=== PATIENT | female | born 1995 | race Caucasian/White ===

== ENCOUNTER 2016-12-11 05:08 | Emergency (ER) | payer OTHER ==
[~2016-12-11 05:08] MED LIST: ACYCLOVIR400 MG PO; ALLEGRA PO; BACTRIM 400-801 TA1; BACTRIM DS TABL1 TAB PO; FLAGYL; KEFLEX PO; NEXIUM PO; NO MEDICATIONS; NORCO 5/325 TAB1 TAB PO; PERCOCET5/325 PO; PHENERGAN DM1 ML PO; PRENATAL1 TA1 PO; RISPERIDONE PO; TOPAMAX PO; VOLTAREN75 MG PO; ZYRTEC-D TABLE1 EACH PO
[2016-12-13] MEDS ORDERED: NO MEDICATIONS (01:05)
== END 2016-12-11 05:17 | disposition home or self-care (01) ==
LOC: SED 05:08
DX: L02.01 Cutaneous abscess of face (principal); L02.212 Cutaneous abscess of back [any part, except buttock and flank]; L02.11 Cutaneous abscess of neck; L02.414 Cutaneous abscess of left upper limb; L02.413 Cutaneous abscess of right upper limb; L02.211 Cutaneous abscess of abdominal wall; F17.200 Nicotine dependence, unspecified, uncomplicated
CPT/HCPCS: 99282

== ENCOUNTER 2016-12-13 01:21 | Emergency (ER) | payer OTHER ==
--- NOTE | ~2016-12-13 | CT99 ---
[facility]. [facility] [place] A Service of [facility] RADIOLOGY TEXT RESULTS PATIENT: YEISON NEWMAN LOCATION: SED : [birth year] UNIT #: [id number] AGE: [address]: Marc Rivero SEX: F ORDER DR: [id number] [place] [id number] MR#: [id number] Acc #: [id number] NAME: YEISON NEWMNA : 1995 SEX: F STUDY DATE/TIME: 12/13/2016 2:11 UNIT: SED ROOM: STUDY DESCRIPTION: CT Maxillofacial Area W Cont Attending Physician: Marc Rivero P.A.-C. Ordering Physician: Marc Rivero P.A.-C. Primary Care Physician: No Primary Care Physician MEDICAL IMAGING REPORT This report is preliminary unless electronic signature is present. EXAM CT face without contrast. DATE 12/13/2016 HISTORY 21-year-old female with right side facial swelling for 2 days. COMPARISON None PROCEDURE 2 mm axial images through the face after IV contrast administration. Sagittal and coronal reformatted images were obtained. This CT exam was performed with one or more of the following radiation dose reduction techniques: automatic exposure control, adjustment of mA and/or kV according to patient size, and iterative reconstruction. FINDINGS There is mild asymmetric subcutaneous fat induration and skin thickening along the right side of the face suggesting focal cellulitic change (see series 6 image 17 denoted by arrows). No well-defined drainable fluid collection or abscess is seen. The parotid and submandibular glands appear normal. Major paranasal sinuses and mastoid air cells are clear. Minimal bilateral maxillary sinus mucosal thickening. Imaged osseous structures are within normal limits. Major vascular structures appear well opacified and patent. No appreciable periodontal disease. Imaged portion of the brain parenchyma appears normal. IMPRESSION [facility] A Service [facility] RADIOLOGY TEXT RESULTS PATIENT: YEISON NEWMAN LOCATION: SED : 93 UNIT #: [id number] AGE: [address]: Marc Rivero PAC SEX: F ORDER DR: Asymmetric right facial skin thickening and subcutaneous fat induration suggestive of cellulitic type change. No drainable fluid collection or abscess is seen. Dictated by... Cheli Bradley M.D. THIS IS AN ELECTRONICALLY VERIFIED REPORT Cheli Bradley M.D. at 12/13/2016 10:[address] [facility]/[place] TD: 12/13/2016 12:25 JOB #: [id number] MEDICAL IMAGING REPORT
[2016-12-13 02:05] LABS: BASOPHIL# 0.2 X10e3 (0-0.3); BASOPHIL% 0.8 % (0-2.5); EOSINOPHIL# 0.6 X10e3 (0-0.7); HEMATOCRIT 42.7 % (35.0-45.0); HEMOGLOBIN 14.3 gm/dL (12.0-16.0); LYMPHOCYTE# 3.5 X10e3 (1.0-3.5); LYMPHOCYTE% 12.8 % (17.0-45.0); MEAN CELL VOLUME 95.8 FL (83-96); MEAN CORPUSCULAR HGB CONC 33.4 g/dL (30-36); MEAN PLATELET VOLUME 8.4 FL (6.5-11.5); MONOCYTE# 1.5 X10e3 (0-1.0); MONOCYTE% 5.6 % (3.0-12.0); NEUTROPHIL# 21.4 X10e3 (1.5-7.1); NEUTROPHIL% 78.8 % (40-75); PLATELET COUNT 317 X10e3 (140-420); RED BLOOD COUNT 4.46 X10e (3.90-5.30); RED CELL DISTRIBUTION WIDTH 13.1 % (11.0-15.5); WHITE BLOOD COUNT 27.2 X10e3 (4.0-10.5)
[2016-12-13 02:07] LABS: DIFF IND NO
[2016-12-13 02:16] LABS: ALBUMIN SERUM 4.2 g/dL (3.5-5.0); ALKALINE PHOSPHATASE 62 U/L (32-92); ALT (SGPT) 22 U/L (10-40); AST (SGOT) 40 U/L (10-42); BILIRUBIN,TOTAL 0.4 mg/dL (0.2-2.0); BLOOD UREA NITROGEN 13 mg/dL (9-23); BUN/CREATININE RATIO 21.66; CARBON DIOXIDE 25 mmol/L (22-31); CHLORIDE 102 mmol/L (100-111); CREATININE SERUM 0.6 mg/dL (0.6-1.4); GLOM FILT RATE Estimated ABOVE60 mL/min (>60); GLUCOSE FASTING 71 mg/dL (70-110); SODIUM 138 mmol/L (135-145)
[2016-12-13 02:17] LABS: BILIRUBIN, DIRECT <0.1 mg/dL (0.0-0.2); BILIRUBIN,INDIRECT 0.3 mg/dL (0.0-0.9)
== END 2016-12-13 05:20 | disposition home or self-care (01) ==
LOC: SED 01:21
PROVIDERS: Physician Assistant
DX: L02.215 Cutaneous abscess of perineum (principal); L03.211 Cellulitis of face; Z88.5 Allergy status to narcotic agent; Z91.040 Latex allergy status
CPT/HCPCS: 10060; 36415; 70487; 80048; 80076; 85025; 87040; 87070; 87077; 87186; 87205; 96361; 96365; 96367; 96375; 96376; 97602; 99284; J1170; J2270; J2405; J2543; J3370; Q9967

== ENCOUNTER 2016-12-16 17:08 | Emergency (ER) | payer OTHER ==
--- NOTE | ~2016-12-16 | EKG ---
PATIENT: YEISON NEWMAN UNIT #: [id number] Ventricular Rate: 112 BPM Atrial Rate: 112 BPM P-R Interval: 138 ms QRS Duration: 80 ms Q-T Interval: 330 ms QTC Calculation(Bezet): 450 ms P Lacrosse: 84 degrees Calculated R Lacrosse: 90 degrees Calculated T Lacrosse: 46 degrees Diagnosis Line: Sinus tachycardia with frequent Premature Diagnosis Line: ventricular complexes Diagnosis Line: Rightward axis Diagnosis Line: Borderline ECG Diagnosis Line: No previous ECGs available Diagnosis Line: Confirmed by ROBE YODER MD ([id number]) on 12/22/2016 Diagnosis Line: 9:37:19 AM INTERPRETING MD: BEBA LOMAS
== END 2016-12-16 17:18 | disposition home or self-care (01) ==
LOC: SED 17:08
DX: Z48.01 Encounter for change or removal of surgical wound dressing (principal); F31.9 Bipolar disorder, unspecified; F17.200 Nicotine dependence, unspecified, uncomplicated; Z91.040 Latex allergy status; Z88.8 Allergy status to other drugs, medicaments and biological substances
CPT/HCPCS: 93005; 99281; 99283

== ENCOUNTER 2017-04-11 19:16 | Emergency (ER) | payer OTHER | END 2017-04-11 20:10 | disposition home or self-care (01) | LOC: SED 19:16 | DX: S16.1XXA Strain of muscle, fascia and tendon at neck level, initial encounter (principal); M54.41 Lumbago with sciatica, right side; K21.9 Gastro-esophageal reflux disease without esophagitis; F17.200 Nicotine dependence, unspecified, uncomplicated; Z88.5 Allergy status to narcotic agent; Z91.040 Latex allergy status; X50.0XXA Overexertion from strenuous movement or load, initial encounter | CPT/HCPCS: 99283 ==